=== PATIENT | female | born 1990 | race African-American/Black ===

== ENCOUNTER 2021-09-07 11:58 | Inpatient (IN) | payer MEDICAID ==
[~2021-09-07] VITALS: Ht 165.1 cm; Wt 104.8 kg
--- NOTE | 2021-09-07 12:07 | NUR ---
CODE STROKE ACTIVATED
--- NOTE | 2021-09-07 12:08 | NUR ---
TO ER BED 11, C/O LT SIDE + FACIAL DROOP WITH SLURRED SPEECH & WEAKNESS, AAOX3, BRETHING EVEN AND NON LABORED, MD AT BEDSIDE
--- NOTE | 2021-09-07 12:25 | NUR ---
MOVE SHEET SUBMITTED AND CALLED FOR TELE BED.
[2021-09-07 12:28] LABS: BASOPHILS # (AUTO) 0.1 K/uL (0.0-0.2); BASOPHILS % (AUTO) 1.2 % (0.0-2.0); EOSINOPHILS % (AUTO) 1.5 % (0.0-6.0); HEMATOCRIT 39 % (33-45); HEMOGLOBIN 12.9 g/dL (11.5-14.8); LYMPHOCYTES # (AUTO) 1.7 K/uL (0.8-4.8); LYMPHOCYTES % (AUTO) 19.4 % (20.0-44.0); MEAN CORPUSCULAR HGB CONC 33 g/dl (31.0-36.0); MEAN CORPUSCULAR VOLUME 94 fL (82-100); MONOCYTES # (AUTO) 0.6 K/uL (0.1-1.30); MONOCYTES % (AUTO) 7.2 % (2.0-12.0); NEUTROPHILS # (AUTO) 6.3 K/uL (1.8-8.9); NEUTROPHILS % (AUTO) 70.7 % (43.0-81.0); PLATELET COUNT (AUTO) 338 K/uL (150-450); RED BLOOD CELL COUNT(AUTO) 4.18 MIL/uL (4.0-5.2); WHITE BLOOD COUNT (AUTO) 8.9 K/uL (4.3-11.0)
[2021-09-07] MEDS ORDERED: MORPHINE SULFATE INJ 2 MG/ML DISP.SYRIN IV ONE (12:30)
[2021-09-07] MEDS ORDERED: ONDANSETRON HCL/PF 4 MG/2 ML VIAL IV ONE (12:30)
--- NOTE | 2021-09-07 12:30 | NUR ---
POWER REGULATOR AT BEDSIDE
--- NOTE | 2021-09-07 12:30 | NUR ---
TELE NEURO IS DR. FORTINO HERNANDEZ
[2021-09-07] MEDS ORDERED: MORPHINE SULFATE INJ 4 MG/ML DISP.SYRIN ONE (12:38)
[2021-09-07] MEDS ORDERED: ONDANSETRON HCL/PF 4 MG/2 ML VIAL ONE (12:38)
[2021-09-07 12:41] LABS: CALCIUM, SERUM 8.5 mg/dL (8.5-10.1); CARBON DIOXIDE 27 mmol/L (21-32); CHLORIDE 107 mmol/L (98-107); CREATININE 1.3 mg/dL (0.6-1.3); GLUCOSE 71 mg/dL (74-106); POTASSIUM 3.8 mmol/L (3.5-5.1); SODIUM SERUM 140 mmol/L (136-145); UREA NITROGEN, BLOOD 16 mg/dL (7-18)
--- NOTE | 2021-09-07 12:49 | NUR ---
MEDICATED FOR PAIN PER ERMD ORDER, PT RAD WELL. PT C/O RT LOWER ABD PAIN RADIATES TO HEAD. PT STS " TELL THE DOCTOR, I HAVE HIGH TOLERANCE WHEN IT COMES TO PAIN SO I MIGHT NOT FEEL THAT MORPHINE ", ERMD AWARE.
--- NOTE | 2021-09-07 13:06 | NUR ---
TAKEN TO CT
--- NOTE | 2021-09-07 13:19 | NUR ---
ULTRASOUND AT BEDSIDE.
--- NOTE | 2021-09-07 13:31 | NUR ---
PT URINE COLLECTED AND SENT TO LAB
--- NOTE | 2021-09-07 13:52 | NUR ---
DR PAUL AT BEDSIDE
[2021-09-07] MEDS ORDERED: MAG HYDROX/AL HYDROX/SIMETH 30 ML UDC PO PRN (14:00)
[2021-09-07] MEDS ORDERED: ACETAMINOPHEN 325 MG TABLET PO PRN (14:00)
[2021-09-07] MEDS ORDERED: ONDANSETRON HCL/PF 4 MG/2 ML VIAL IVP PRN (14:00)
[2021-09-07] MEDS ORDERED: MAGNESIUM HYDROXIDE 30 ML UDC PO PRN (14:00)
[2021-09-07] MEDS ORDERED: ZOLPIDEM TARTRATE 5 MG TABLET PO PRN (14:00)
[2021-09-07] MEDS ORDERED: ENOXAPARIN SODIUM 40 MG/0.4 ML DISP.SYRIN SQ SCH (14:30)
--- NOTE | 2021-09-07 14:40 | NUR ---
COVID SWAB DONE AND SENT TO LAB
[2021-09-07] MEDS ORDERED: HYDROCODONE/APAP 5/325MG TABLET ONE (14:55)
[2021-09-07] MEDS ORDERED: KETOROLAC TROMETHAMINE INJ 30 MG/ML VIAL ONE (14:55)
[2021-09-07] MEDS ORDERED: HYDROCODONE/APAP 5/325MG TABLET PO ONE (15:00)
[2021-09-07] MEDS ORDERED: KETOROLAC TROMETHAMINE INJ 30 MG/ML VIAL IV ONE (15:00)
--- NOTE | 2021-09-07 15:45 | NUR ---
GOT BED 319-1
[2021-09-07 15:47] VITALS: BP 118/70
--- NOTE | 2021-09-07 15:52 | NUR ---
REPORT GIVEN TO KATHI FLANAGAN FOR JEANNINE
--- NOTE | 2021-09-07 16:30 | NUR ---
TELE/RN RECEIVING NOTES RECEIVED PATIENT A TRANSFER FROM ER. PATIENT IS ALERT AND ORIENTED X4, ABLE TO MAKE NEEDS KNOWN. STABLE ON ROOM AIR. AMBULATORY AND STEADY. SKIN INTACT. IS COMPLAINING OF PAIN 10/10. PER PATIENT PAIN MEDS GIVEN AT THE ER IS NOT EFFECTIVE. PATIENT IS ALSO ASKING FOR BENADRYL FOR ITCHING. V/S TAKEN AND RECORDED FOLLOWS: BP-120/80, RR-18, T-98.7, PULSE- 80, O2 SAT AT 99% RA. IV ACCESS ON LEFT AC #18G IS INTACT AND PATENT. ORIENTED PATIENT TO THE UNIT, ABLE TO VERBALIZED UNDERSTANDING. SAFETY PRECAUTIONS IN PLACED: BED LOCKED ON LOWEST POSITION, SIDE RAILS UPX2, CALL LIGHT WITHIN REACH. WILL CONTINUE TO MONITOR.
[2021-09-07] MEDS ORDERED: Z GUARD REMEDY 2 OZ OINT TP PRN (17:00)
--- NOTE | 2021-09-07 18:30 | NUR ---
TELE/RN NOTES- PATIENT AMA PATIENT HAS BEEN WANTING TO GET PAIN MEDICATIONS AND BENADRYL, TEXTED AND CALLED DR FLEMING BUT MD REFUSED TO PLACED AN ORDER PER PATIENT REQUEST. PATIENT SAID SHE IS LEAVING HOSPITAL. EXPLAINED TO PATIENT THE RISK FOR LEAVING AGAINST MEDICAL ADVISE. PATIENT AGREED TO SIGN AMA FORM. IV ACCESS ON LEFT AC DISCONTINUED AND ASSISTED PATIENT DOWN TO THE LOBBY. PER PATIENT, SHE WILL DO UBER RIDE. NOTIFIED.
== END 2021-09-07 18:45 | disposition left against medical advice (07) | DRG 54 ==
LOC: ER 12:15 → TELE 16:01
DX: G43.909 Migraine, unspecified, not intractable, without status migrainosus (principal); G81.94 Hemiplegia, unspecified affecting left nondominant side; E66.9 Obesity, unspecified; N83.201 Unspecified ovarian cyst, right side; Z88.0 Allergy status to penicillin; Z72.0 Tobacco use; Z86.69 Personal history of other diseases of the nervous system and sense organs; J45.909 Unspecified asthma, uncomplicated
CPT/HCPCS: 36415; 70450-TC; 70496-TC; 70498-TC; 71045-TC; 76856-TC; 80048-TC; 84484-TC; 84702-TC; 84703-TC; 85025-TC; 85652-TC; 85730-TC; C9803; G0378; J1650; J1885; J2270; J2405

== ENCOUNTER 2024-04-01 22:06 | Emergency (ER) | payer MEDICAID, OTHER ==
[~2024-04-01] VITALS: Ht 177.8 cm; Wt 104.3 kg
[2024-04-01 22:50] VITALS: TEMP 98.2
[2024-04-01] MEDS ORDERED: HYDR-3972 PO (23:08)
[2024-04-01 23:26] VITALS: BP 153/95; O2SAT 99
== END 2024-04-01 23:27 | disposition home or self-care (01) ==
LOC: ER 22:07
DX: R10.2 Pelvic and perineal pain (principal); Z76.0 Encounter for issue of repeat prescription; Z88.0 Allergy status to penicillin